=== PATIENT | female | born 1985 | race Two or more races ===

== ENCOUNTER 2024-02-03 16:37 | Emergency (ER) | payer BC ==
[~2024-02-03] VITALS: Ht 154.9 cm; Wt 72.2 kg
[2024-02-03 17:41] VITALS: BP 158/97; PULSE 95; RESP 16; TEMP 98.7; O2SAT 100
[2024-02-03] MEDS ORDERED: AZIT500T66 PO (18:09)
[2024-02-03] MEDS ORDERED: BENZ200C64 PO (18:09)
== END 2024-02-03 18:37 | disposition home or self-care (01) ==
LOC: ER 16:37
DX: J20.9 Acute bronchitis, unspecified (principal); F17.210 Nicotine dependence, cigarettes, uncomplicated
CPT/HCPCS: 71045